=== PATIENT | male | born 1955 | race Caucasian/White ===

== ENCOUNTER 2018-01-04 18:38 | Observation (INO) ==
--- NOTE | 2018-01-04 19:09 | Emergency Department Note ---
Disposition Clinical Impression: Ureterolithiasis, Hydroureter on right Hydronephrosis Qualifiers: Hydronephrosis type: unspecified Qualified Code(s): N13.30 - Unspecified hydronephrosis Appendicitis Qualifiers: Appendicitis type: acute appendicitis Acute appendicitis type: unspecified acute appendicitis type Qualified Code(s): K35.80 - Unspecified acute appendicitis Disposition: Admitted As Inpatient Condition: Good Time of Disposition: 19:58 Abdominal Pain HPI - General Chief Complaint: ED Abdominal Pain Stated Complaint: abd pain Time Seen by Provider: 01/04/18 18:51 Source: patient Mode of arrival: ambulatory Limitations: no limitations Nursing Notes Reviewed: Yes Vital Signs Reviewed: Yes - History of Present Illness HPI Narrative: Patient is a 62-year-old male with past medical history of hypertension, diabetes, multiple kidney stones in the past. He states that about 1-2 months ago, he was diagnosed with 2 kidney stones on the right, to which he states were in the ureter. He says that he has passed multiple kidney stones in the past since age 22. Denies ever having to have intervention to remove kidney stones. He presents today due to right lower quadrant pain described as a sharp burning with no radiation, gradual in onset.. He states that he has had intermittent sharp pain on the right flank but says that this feels somewhat different from previous kidney stone pain. He was concerned that this could be appendicitis. He denies any other nausea, vomiting, fevers, diarrhea, constipation, blood in stool, dysuria, hematuria, testicular or groin pain. No falls or injuries. Pain Scale: 9 - Related Data Allergies Allergy/AdvReac Type Severity Reaction Status Date / Time IVP dye Allergy Hives Uncoded 01/04/18 18:44 All systems ED: reviewed and negative except as stated. Constitutional: Denies: fever Cardiovascular: Denies: chest pain Respiratory: Denies: cough, dyspnea, wheezes Gastrointestinal: Reports: abdominal pain. Denies: nausea, vomiting, diarrhea, constipation Abdominal Pain PMH - Past Medical History Medical history: Reports: diabetes, hypertension, kidney stones Male Surgical History: Reports: herniorrhaphy Psychiatric history: Reports: no psych history - Social History Smoking status: Never smoker Alcohol use: Reports: occasionally Drug use: Reports: none Physical Exam - General Limitations: no limitations General appearance: alert - Head Head exam: atraumatic, normocephalic, normal inspection - Eye Eye exam: Present: normal appearance, PERRL, EOMI - ENT ENT exam: normal exam, normal oropharynx, mucous membranes moist - Neck Neck exam: Present: normal inspection, full ROM, trachea midline - Chest Chest inspection: Present: normal inspection, symmetric chest wall rise - Respiratory Respiratory exam: Present: normal lung sounds bilaterally - Cardiovascular Cardiovascular exam: Present: regular rate, normal rhythm, normal heart sounds - Abdominal Exam Abdominal exam: Present: soft, tenderness (Tenderness right lower quadrant around McBurney's point), other (Negative heel jar, negative obturator sign). Absent: distention, guarding, rebound, rigidity, Ugarte's sign, Rovsing's sign - Extremities Exam Extremities exam: Present: normal inspection, full ROM. Absent: tenderness, pedal edema - Neurological Exam Neurological exam: Present: alert, oriented X3 - Psychiatric Psychiatric exam: Present: normal affect, normal mood - Skin Skin exam: Present: warm, dry, intact, normal color Course Course Narrative: Patient was tachycardic and hypertensive. We will give 1 L normal saline bolus. Patient is declining any pain medication at this time. He does have right lower quadrant pain on palpation. History of kidney stones. Currently concern for appendicitis versus kidney stones. We will obtain CT of the abdomen and pelvis, basic labs, urinalysis. 20:42 CT abdomen and pelvis shows acute uncomplicated appendicitis. I also reviewed the images myself and there are 2 kidney stones in the right ureter with some mild hydronephrosis. I spoke with Dr. Goff, she has accepted the patient for admission. PTT/INR and PTT are pending. She requested the patient be nothing by mouth and will perform surgery tomorrow morning since vitals are stable and patient is currently not requiring any pain medication at this time. Abdomen/Pelvis CT 01/04/18 19:06 IMPRESSION: Acute uncomplicated appendicitis. Findings were discussed with Wilfrid Gonzales at 8:17 pm on 01/04/2018. D/ / 01/04/2018 20:29:18 [facility] Interpre[facility] Provider: Ashish Adams MD Vital Signs Temperature 98.5 F 01/04/18 18:44 Pulse Rate 108 01/04/18 18:44 Respiratory Rate 20 01/04/18 18:44 Blood Pressure 191/101 01/04/18 18:44 O2 Sat by Pulse Oximetry 95 01/04/18 18:44 Temperature 98.7 F 01/05/18 02:59 Pulse Rate 88 01/05/18 02:59 Respiratory Rate 16 01/05/18 02:59 Blood Pressure 136/75 01/05/18 02:59 O2 Sat by Pulse Oximetry 94 01/05/18 02:59 Oxygen Delivery Oxygen Delivery Room Air Abdominal Pain - MDM Narrative Medical decision making narrative: Patient was tachycardic and hypertensive. We will give 1 L normal saline bolus. Patient is declining any pain medication at this time. He does have right lower quadrant pain on palpation. History of kidney stones. Currently concern for appendicitis versus kidney stones. We will obtain CT of the abdomen and pelvis, basic labs, urinalysis. 20:42 CT abdomen and pelvis shows acute uncomplicated appendicitis. I also reviewed the images myself and there are 2 kidney stones in the right ureter with some mild hydronephrosis. I spoke with Dr. Goff, she has accepted the patient for admission. PTT/INR and PTT are pending. She requested the patient be nothing by mouth and will perform surgery tomorrow morning since vitals are stable and patient is currently not requiring any pain medication at this time. - Medical Records Medical records reviewed: Yes I reviewed the patient's medical records. - Lab Data Lab results reviewed: Yes I reviewed the patient's lab results. Result diagrams: 01/05/18 05:09 01/05/18 05:09 Lab Results 01/04/18 01/04/18 01/04/18 Range/Units 19:05 19:05 19:05 WBC 18.0 H (4.3-11.1) K/mcL RBC 5.75 H (4.19-5.50) M/mcL Hgb 17.9 H (12.9-16.9) g/dL Hct 51.2 H (37.5-50.1) % MCV 89.0 (83.0-100.0) fL MCH 31.1 (28.0-33.3) pg MCHC 35.0 (31.6-35.5) g/dL RDW 13.2 (11.5-14.5) % Plt Count 214 (140-400) K/mcL MPV 10.5 (9.4-12.4) fL Immature Gran % 0.4 (0-4) % Seg Neutrophils % 82.0 % Lymphocytes % 10.0 % Monocytes % 6.7 % Eosinophils % 0.6 % Basophils % 0.3 % Neutrophils # 14.8 H (1.6-8.9) K/mcL Lymphocytes # 1.8 (0.6-4.6) K/mcL Monocytes # 1.2 (0.0-1.3) K/mcL Eosinophils # 0.1 (0.0-0.6) K/mcL Basophils # 0.1 (0.0-0.2) K/mcL PT 11.2 (9.4-12.1) Seconds INR 1.0 APTT 24.8 L (26.0-36.0) Seconds Sodium 136 (136-145) mEq/L Potassium 3.7 (3.5-5.1) mEq/L Chloride 102 (98-107) mEq/L Carbon Dioxide 22 L (23-29) mEq/L BUN 14 (8-23) mg/dL Creatinine 0.95 (0.70-1.30) mg/dL Est GFR ( Amer) > 60 (> 60) Est GFR (Non-Af Amer) > 60 (> 60) BUN/Creatinine Ratio 15 (6-26) Glucose 157 H (70-105) mg/dL Calculated Osmolality 286 (280-300) Calcium 10.1 (8.6-10.3) mg/dL Total Bilirubin 0.8 (0.3-1.0) mg/dL Direct Bilirubin 0.1 (0.0-0.2) mg/dL Indirect Bilirubin 0.7 (0.0-1.2) mg/dL AST 31 (13-39) Units/L ALT 52 (7-52) Units/L Alkaline Phosphatase 71 (34-104) Units/L Serum Total Protein 7.7 (6.4-8.9) g/dL Albumin 5.3 (3.5-5.7) g/dL Globulin 2.4 (2.4-3.5) g/dL Albumin/Globulin Ratio 2.2 (1.1-2.2) Amylase 29 (29-103) Units/L Lipase 33 (11-82) Units/L Urine Color (Yellow) Urine Clarity (Clear) Urine pH (5.0-8.0) pH Units Ur Specific [place] (1.010-1.025) Urine Protein (Neg-Trace) mg/dL Urine Glucose (UA) (Normal) mg/dL Urine Ketones (Negative) mg/dL Urine Blood (Negative) Urine Nitrite (Negative) Urine Bilirubin (Negative) Urine Urobilinogen (Normal) mg/dL Ur Leukocyte Esterase (Negative) Urine Microscopic RBC (0-3) per hpf Urine Microscopic WBC (0-3) per hpf Ur Squamous Epith Cells (None-Few) per lpf Urine Bacteria (None-Few) per hpf Hyaline Casts (None-Few) per lpf Ur Culture Indicated? (NO) 01/04/18 Range/Units 19:30 WBC (4.3-11.1) K/mcL RBC (4.19-5.50) M/mcL Hgb (12.9-16.9) g/dL Hct (37.5-50.1) % MCV (83.0-100.0) fL MCH (28.0-33.3) pg MCHC (31.6-35.5) g/dL RDW (11.5-14.5) % Plt Count (140-400) K/mcL MPV (9.4-12.4) fL Immature Gran % (0-4) % Seg Neutrophils % % Lymphocytes % % Monocytes % % Eosinophils % % Basophils % % Neutrophils # (1.6-8.9) K/mcL Lymphocytes # (0.6-4.6) K/mcL Monocytes # (0.0-1.3) K/mcL Eosinophils # (0.0-0.6) K/mcL Basophils # (0.0-0.2) K/mcL PT (9.4-12.1) Seconds INR APTT (26.0-36.0) Seconds Sodium (136-145) mEq/L Potassium (3.5-5.1) mEq/L Chloride (98-107) mEq/L Carbon Dioxide (23-29) mEq/L BUN (8-23) mg/dL Creatinine (0.70-1.30) mg/dL Est GFR ( Amer) (> 60) Est GFR (Non-Af Amer) (> 60) BUN/Creatinine Ratio (6-26) Glucose (70-105) mg/dL Calculated Osmolality (280-300) Calcium (8.6-10.3) mg/dL Total Bilirubin (0.3-1.0) mg/dL Direct Bilirubin (0.0-0.2) mg/dL Indirect Bilirubin (0.0-1.2) mg/dL AST (13-39) Units/L ALT (7-52) Units/L Alkaline Phosphatase (34-104) Units/L Serum Total Protein (6.4-8.9) g/dL Albumin (3.5-5.7) g/dL Globulin (2.4-3.5) g/dL Albumin/Globulin Ratio (1.1-2.2) Amylase (29-103) Units/L Lipase (11-82) Units/L Urine Color Yellow (Yellow) Urine Clarity Clear (Clear) Urine pH 6.0 (5.0-8.0) pH Units Ur Specific [place] 1.025 (1.010-1.025) Urine Protein Negative (Neg-Trace) mg/dL Urine Glucose (UA) Normal (Normal) mg/dL Urine Ketones Negative (Negative) mg/dL Urine Blood Trace H (Negative) Urine Nitrite Negative (Negative) Urine Bilirubin Negative (Negative) Urine Urobilinogen Normal (Normal) mg/dL Ur Leukocyte Esterase Negative (Negative) Urine Microscopic RBC 5-15 H (0-3) per hpf Urine Microscopic WBC 0-3 (0-3) per hpf Ur Squamous Epith Cells Few (None-Few) per lpf Urine Bacteria None Seen (None-Few) per hpf Hyaline Casts None Seen (None-Few) per lpf Ur Culture Indicated? NO (NO) - Radiology Data Radiology results reviewed: Yes I reviewed the patient's radiology results. Abdomen/Pelvis CT 01/04/18 19:06 IMPRESSION: Acute uncomplicated appendicitis. Findings were discussed with Wilfrid Gonzales at 8:17 pm on 01/04/2018. D/ / 01/04/2018 20:29:18 Ashish Adams MD / [facility] Interpreting Provider: Ashish Adams MD [facility] Situation: Demographics, MOA Background: Presenting Complaint, Relevant PMH, Meds, & Allergies Assessment: Vital Signs, Course and respsone to treatment, Exam Concerns, Patient/Family Expectation, Pertinant Lab Results Recommendation: Barrier(s) to disposition, Recommendation based on pending studies, treatments, or consults [facility].B.A.R. Report Given to: Dr. Goff Attestation Statement - Attestation Attestation: I examined this patient and my medical decision-making was reviewed with the Resident Physician. I agree with the documented findings, disposition and treatment plan as described except to the extent set forth below. Acute appendicitis. We will admit for surgical evaluation. Discussed case with general surgery.
[2018-01-04] MEDS ORDERED: 0.9 % Sodium Chloride 1,000 ML IVC ONE (19:11)
[2018-01-04 19:22] LABS: Basophils # 0.1 K/mcL (0.0-0.2); Basophils % 0.3 %; Eosinophils # 0.1 K/mcL (0.0-0.6); Eosinophils % 0.6 %; Hematocrit 51.2 % (37.5-50.1); Hemoglobin 17.9 g/dL (12.9-16.9); Immature Granulocytes % 0.4 % (0-4); Lymphocytes # 1.8 K/mcL (0.6-4.6); Mean Corpuscular Hemoglobin 31.1 pg (28.0-33.3); Mean Platelet Volume 10.5 fL (9.4-12.4); Monocytes # 1.2 K/mcL (0.0-1.3); Monocytes % 6.7 %; Neutrophils # 14.8 K/mcL (1.6-8.9); Platelet Count 214 K/mcL (140-400); Red Blood Count 5.75 M/mcL (4.19-5.50); Red Cell Distribution Width 13.2 % (11.5-14.5)
[2018-01-04 19:37] LABS: Bilirubin,Urine Negative (Negative); Blood,Urine Trace (Negative); Clarity,Urine Clear (Clear); Color,Urine Yellow (Yellow); Glucose,Urine (UA) Normal (Normal); Ketones,Urine Negative (Negative); Leukocyte Esterase,Urine Negative (Negative); Nitrite,Urine Negative (Negative); Protein,Urine Negative (Neg-Trace); Specific Gravity,Urine 1.025 (1.010-1.025); Urobilinogen,Urine Normal (Normal)
[2018-01-04 19:42] LABS: Bacteria,Urine None Seen per hpf (None-Few); Hyaline Casts,Urine None Seen per lpf (None-Few); Squamous Epithelial Cell,Urine Few per lpf (None-Few); WBC,Urine 0-3 per hpf (0-3)
[2018-01-04 19:42] LABS: Alanine Aminotransferase 52 Units/L (7-52); Albumin 5.3 g/dL (3.5-5.7); Albumin/Globulin Ratio 2.2 (1.1-2.2); Alkaline Phosphatase 71 Units/L (34-104); Amylase 29 Units/L (29-103); Aspartate Amino Transferase 31 Units/L (13-39); BUN/Creatinine Ratio 15 (6-26); Bilirubin,Direct 0.1 mg/dL (0.0-0.2); Bilirubin,Indirect 0.7 mg/dL (0.0-1.2); Bilirubin,Total 0.8 mg/dL (0.3-1.0); Blood Urea Nitrogen 14 mg/dL (8-23); Calcium 10.1 mg/dL (8.6-10.3); Carbon Dioxide 22 mEq/L (23-29); Chloride 102 mEq/L (98-107); Globulin 2.4 g/dL (2.4-3.5); Glucose 157 mg/dL (70-105); Lipase 33 Units/L (11-82); Osmolality,Calculated 286 (280-300); Potassium 3.7 mEq/L (3.5-5.1); Sodium 136 mEq/L (136-145); Total Protein 7.7 g/dL (6.4-8.9); eGFR For African Americans > 60 (> 60); eGFR For Non-African Americans > 60 (> 60)
[2018-01-04 20:57] LABS: Prothrombin Time 11.2 Seconds (9.4-12.1)
[2018-01-04 20:59] LABS: Activated Partial Thrombo Time 24.8 Seconds (26.0-36.0)
[2018-01-04] MEDS ORDERED: Ondansetron 4 MG/2 ML VIAL IVP PRN (22:30)
[2018-01-04] MEDS ORDERED: OXYCODONE Oral CONC 10 MG/0.5 ML ORAL.SYG SL PRN (22:30)
[2018-01-04] MEDS ORDERED: Acetaminophen 325 MG TABLET PO PRN (22:31)
[2018-01-04] MEDS: 0.9 % Sodium Chloride 1,000 ML IVC SCH (23:59)
[2018-01-05 05:42] LABS: Basophils # 0.1 K/mcL (0.0-0.2); Basophils % 0.3 %; Eosinophils # 0.1 K/mcL (0.0-0.6); Eosinophils % 0.7 %; Hematocrit 45.6 % (37.5-50.1); Immature Granulocytes % 0.5 % (0-4); Lymphocytes # 2.2 K/mcL (0.6-4.6); Lymphocytes % 14.5 %; Mean Corpuscular HGB Conc 35.3 g/dL (31.6-35.5); Mean Corpuscular Volume 90.7 fL (83.0-100.0); Mean Platelet Volume 10.4 fL (9.4-12.4); Monocytes # 1.4 K/mcL (0.0-1.3); Monocytes % 9.3 %; Neutrophils # 11.4 K/mcL (1.6-8.9); Platelet Count 187 K/mcL (140-400); Red Blood Count 5.03 M/mcL (4.19-5.50); Segmented Neutrophils % 74.7 %
[2018-01-05 05:43] LABS: Hemoglobin 16.1 g/dL (12.9-16.9)
[2018-01-05 06:06] LABS: BUN/Creatinine Ratio 12 (6-26); Blood Urea Nitrogen 11 mg/dL (8-23); Calcium 9.4 mg/dL (8.6-10.3); Carbon Dioxide 26 mEq/L (23-29); Chloride 106 mEq/L (98-107); Glucose 150 mg/dL (70-105); Osmolality,Calculated 290 (280-300); Potassium 3.4 mEq/L (3.5-5.1); Sodium 139 mEq/L (136-145); eGFR For African Americans > 60 (> 60); eGFR For Non-African Americans > 60 (> 60)
--- NOTE | 2018-01-05 08:38 | General Surg History&Physical ---
Addendum entered and electronically signed by Teresita Alston CNP 01/05/18 08: 49: Pt states when he had his tonsillectomy and polyps removed he had trouble with bleeding. He is not able to further elaborate on this and denies taking any blood thinners at this time. Original Note: <Teresita Alston - Last Filed: 01/05/18 08:33> Date of Encounter: 01/05/18 Time of Encounter: 08:33 Assessment and Plan (1) Appendicitis Current Visit: Yes Status: Acute The assessment and plan as outlined above was discussed with the patient and/or family members who expressed understanding and agreement. All questions were answered. H&P are consistent with acute appendicitis. Patient is recommended to undergo surgical intervention. Recommendations, risks, and benefits were reviewed with the patient and his and they are agreeable to proceed. We will plan with surgical intervention in the next 24 to 48 hours. A signed consent is placed on the hard chart. Plan supportive care and discomfort management NPO IV fluids G.I. prophylaxis DVT prophylaxis incentive spirometry Qualifiers: Appendicitis type: acute appendicitis Acute appendicitis type: unspecified acute appendicitis type Qualified Code(s): K35.80 - Unspecified acute appendicitis (2) Hypertension Current Visit: Yes Status: Acute The assessment and plan as outlined above was discussed with the patient and/or family members who expressed understanding and agreement. All questions were answered. PRN IV antihypertensives resume home meds when able Qualifiers: Hypertension type: essential hypertension Qualified Code(s): I10 - Essential (primary) hypertension (3) Type II diabetes mellitus Current Visit: Yes Status: Acute The assessment and plan as outlined above was discussed with the patient and/or family members who expressed understanding and agreement. All questions were answered. NPO Q6 Accu checks sliding scale correction PRN Qualifiers: Diabetes mellitus tank cooper insulin use: without tank cooper use Diabetes mellitus complication status: with unspecified complications Qualified Code(s) : E11.8 - Type 2 diabetes mellitus with unspecified complications (4) Renal calculi Current Visit: Yes Status: Acute The assessment and plan as outlined above was discussed with the patient and/or family members who expressed understanding and agreement. All questions were answered. Will continue to monitor History of Present Illness Chief complaint: RLQ pain HPI: Mr. Arrington is a 62 year old male 01/04/2018 for complaints of right lower quadrant abdominal discomfort that started approximately 8 AM in the morning. He reports that there were no preceding factors, this was a sudden onset of sharp right lower quadrant pain. Patient states he had had kidney stones in the past and that this discomfort felt similar in the character but much worse in the amount of discomfort. He reports the pain as an 8 out of 10, right lower quadrant, has not migrated, is aggravated by activities such as movement, coughing, the right in the car, and palpation. There is associated nausea but no vomiting. He denies fever. Discomfort is relieved by pain medication in the antibiotics he is been getting through this IV. He denies constipation, diarrhea, changes in his bowel habits, black, bloody, or tarry stool, urinary signs or symptoms, chest pain, shortness of breath, or generalized weakness. His hospital course thus far has included an abdominal CT without contrast which revealed acute uncomplicated appendicitis. There are inflammatory changes without evidence of abscess or perforation. His white blood cell count was elevated at 18.0, he was started on Zosyn, and his white blood cell count today is 15.3. He reports a past medical history of type II diabetes, hypertension that is controlled, renal calculi, umbilical hernia that was repaired by Dr. Perez, denies smoking history, illicit drug use, or alcohol use. 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 Past Med Surg Social Fam HX - Past Medical History Source: patient Medical history: diabetes, hypertension, kidney stones Psychiatric history: no psych history - Past Surgical History Surgical History: herniorrhaphy, tonsilectomy - Social History Smoking Status: Never smoker Smokeless Tobacco Status: No Alcohol use: occasionally Drug use: none Occupational status: employed Current living situation: Home - Independent Activity Level: Independent ambulation - Family History Mother Living Status: Hx Family Cancer: Yes Father Living Status: Hx Family Cancer: Yes Medications and Allergies Amlodipine Besylate 10 mg PO DAILY 01/05/18 [History] Aspirin [Lo-Dose Aspirin EC] 81 mg PO DAILY 01/05/18 [History] Cholecalciferol (Vitamin D3) [Vitamin D] 5,000 unit PO DAILY 01/05/18 [History] Krill/Om-3/Dha/Epa/Phospho/Ast [Krill Oil 500 mg Softgel] 1 each PO DAILY [History] Lutein [Natural Lutein] 20 mg PO DAILY 01/05/18 [History] Metoprolol [Lopressor] 50 mg PO HS 01/05/18 [History] Metoprolol [Lopressor] 100 mg PO DAILY 01/05/18 [History] Mometasone Furoate [Mometasone Furoate] 2 spr NS DAILY 01/05/18 [History] Potassium Chloride [Klor-Con 10] 20 meq DAILY 01/05/18 [History] Triamterene/HCTZ 37.5/25mg [Dyazide] 1 tab PO DAILY 01/05/18 [History] 3 Allergy/AdvReac Type Severity Reaction Status Date / Time IVP dye Allergy Hives Uncoded 01/04/18 18:44 Review of Systems All systems PM: reviewed and no additional remarkable complaints except as stated All systems PM: The remainder of the systems were reviewed and are negative General Surgery Exam Initial Vital Signs Temp Pulse Resp BP Pulse Ox 98.5 F 108 20 191/101 95 01/04/18 18:44 01/04/18 18:44 01/04/18 18:44 01/04/18 18:44 01/04/18 18:44 VITAL SIGNS: Reviewed. See [facility] GENERAL: In no apparent distress. HEENT: Normocephalic, atraumatic, pupils are equal and reactive, extraocular motions intact, oropharynx is pink and moist, there is no neck adenopathy or JVD noted. CHEST/RESPIRATORY: The thorax is free from signs of trauma. Lung sounds: clear to auscultation, normal respiratory effort CARDIAC: Regular rate and rhythm. Normal S1 and S2, without murmurs, gallops, or rubs. VASCULAR: No Edema. 2+ peripheral pulses. ABDOMEN: soft, hypoactive bowel sounds, tenderness in the right lower quadrant , positive McBurney, positive psoas, positive obturator, positive Rovsing MUSCULOSKELETAL: Good range of motion of all major joints. Extremities without clubbing, cyanosis or edema. NEUROLOGIC EXAM: Alert and oriented x 3. Speech normal. Follows commands. PSYCHIATRIC: Mood normal. SKIN: No rash or lesions. Results - Labs 01/05/18 05:09 01/05/18 05:09 Abnormal lab results WBC 15.3 K/mcL (4.3-11.1) H 01/05/18 05:09 Neutrophils # 11.4 K/mcL (1.6-8.9) H 01/05/18 05:09 Monocytes # 1.4 K/mcL (0.0-1.3) H 01/05/18 05:09 APTT 24.8 Seconds (26.0-36.0) L 01/04/18 19:05 Potassium 3.4 mEq/L (3.5-5.1) L 01/05/18 05:09 Glucose 150 mg/dL (70-105) H 01/05/18 05:09 POC Glucose 173 mg/dL (70-99) H 01/05/18 05:00 Urine Blood Trace (Negative) H 01/04/18 19:30 Urine Microscopic RBC 5-15 per hpf (0-3) H 01/04/18 19:30 Diabetes panel 01/05/18 Range/Units 05:09 Sodium 139 (136-145) mEq/L Potassium 3.4 L (3.5-5.1) mEq/L Chloride 106 (98-107) mEq/L Carbon Dioxide 26 (23-29) mEq/L BUN 11 (8-23) mg/dL Creatinine 0.90 (0.70-1.30) mg/dL Glucose 150 H (70-105) mg/dL Calcium 9.4 (8.6-10.3) mg/dL Calcium panel 01/05/18 Range/Units 05:09 Calcium 9.4 (8.6-10.3) mg/dL Pituitary panel 01/05/18 Range/Units 05:09 Sodium 139 (136-145) mEq/L Potassium 3.4 L (3.5-5.1) mEq/L Chloride 106 (98-107) mEq/L Carbon Dioxide 26 (23-29) mEq/L BUN 11 (8-23) mg/dL Creatinine 0.90 (0.70-1.30) mg/dL Glucose 150 H (70-105) mg/dL Calcium 9.4 (8.6-10.3) mg/dL Adrenal panel 01/05/18 Range/Units 05:09 Sodium 139 (136-145) mEq/L Potassium 3.4 L (3.5-5.1) mEq/L Chloride 106 (98-107) mEq/L Carbon Dioxide 26 (23-29) mEq/L BUN 11 (8-23) mg/dL Creatinine 0.90 (0.70-1.30) mg/dL Glucose 150 H (70-105) mg/dL Calcium 9.4 (8.6-10.3) mg/dL All other labs normal. - Imaging CT scan - abdomen: report reviewed CT scan - pelvis: report reviewed <Katina Goff - Last Filed: 01/05/18 13:13> Date of Encounter: 01/05/18 Assessment and Plan (1) Leukocytosis Current Visit: Yes Status: Acute The assessment and plan as outlined above was discussed with the patient and/or family members who expressed understanding and agreement. All questions were answered. continue zosyn trend wbc decreased today Qualifiers: Leukocytosis type: unspecified Qualified Code(s): D72.829 - Elevated white blood cell count, unspecified (2) Acute appendicitis Current Visit: Yes Status: Acute The assessment and plan as outlined above was discussed with the patient and/or family members who expressed understanding and agreement. All questions were answered. discussed CT scan with patient and his , he has acute appendicitis. will plan laparoscopic appendectomy possible open risks and benefits discussed and he wishes to proceed continue npo ivfh zosyn prn pain control gi/dvt prophylaxis Qualifiers: Acute appendicitis type: unspecified acute appendicitis type Qualified Code (s): K35.80 - Unspecified acute appendicitis (3) Hypertension Current Visit: Yes Status: Acute The assessment and plan as outlined above was discussed with the patient and/or family members who expressed understanding and agreement. All questions were answered. Qualifiers: Hypertension type: essential hypertension Qualified Code(s): I10 - Essential (primary) hypertension (4) Type II diabetes mellitus Current Visit: Yes Status: Acute The assessment and plan as outlined above was discussed with the patient and/or family members who expressed understanding and agreement. All questions were answered. Qualifiers: Diabetes mellitus fdc insulin use: without tank cooper use Diabetes mellitus complication status: with unspecified complications Qualified Code(s) : E11.8 - Type 2 diabetes mellitus with unspecified complications History of Present Illness HPI: Mr. Arrington is a 62 year old male who developed right lower quadrant sharp abdominal pain yesterday. The pain was sharp without radiation. He has a history of kidney stones and states this pain is different. He had nausea but without emesis. No diarrhea, no dysuria. He presented to ED and CT shows acute appendicitis. Patient with elevated wbc 18.0. Past Med Surg Social Fam HX - Past Medical History Source: patient Review of Systems All systems PM: reviewed and no additional remarkable complaints except as stated All systems PM: The remainder of the systems were reviewed and are negative General Surgery Exam Initial Vital Signs Temp Pulse Resp BP Pulse Ox 98.5 F 108 20 191/101 95 01/04/18 18:44 01/04/18 18:44 01/04/18 18:44 01/04/18 18:44 01/04/18 18:44 - General physical appearance well developed, well nourished, no distress - Eyes PERRL, normal ocular movement - ENT normal mucosa, normocephalic - Respiratory normal expansion, clear to auscultation - Cardiovascular Cardiovascular exam: Present: RRR - Abdomen Abdomen general surgery: Present: bowel sounds present, soft, tender. Absent: distended, guarding, rebound Abdominal Tenderness: Present: RLQ, LLQ - Integumentary Integumentary general surgery: Present: warm and dry, no abnormal pigmentation - Neurologic Present: CN 2-12 grossly intact - Musculoskeletal Present: normal posture - Psychiatric Psychiatric general surgery: Present: A&Ox3, speech is normal Results - Labs 01/05/18 05:09 01/05/18 05:09 Abnormal lab results WBC 15.3 K/mcL (4.3-11.1) H 01/05/18 05:09 Neutrophils # 11.4 K/mcL (1.6-8.9) H 01/05/18 05:09 Monocytes # 1.4 K/mcL (0.0-1.3) H 01/05/18 05:09 APTT 24.8 Seconds (26.0-36.0) L 01/04/18 19:05 Potassium 3.4 mEq/L (3.5-5.1) L 01/05/18 05:09 Glucose 150 mg/dL (70-105) H 01/05/18 05:09 POC Glucose 142 mg/dL (70-99) H 01/05/18 10:57 Urine Blood Trace (Negative) H 01/04/18 19:30 Urine Microscopic RBC 5-15 per hpf (0-3) H 01/04/18 19:30 Diabetes panel 01/05/18 Range/Units 05:09 Sodium 139 (136-145) mEq/L Potassium 3.4 L (3.5-5.1) mEq/L Chloride 106 (98-107) mEq/L Carbon Dioxide 26 (23-29) mEq/L BUN 11 (8-23) mg/dL Creatinine 0.90 (0.70-1.30) mg/dL Glucose 150 H (70-105) mg/dL Calcium 9.4 (8.6-10.3) mg/dL Calcium panel 01/05/18 Range/Units 05:09 Calcium 9.4 (8.6-10.3) mg/dL Pituitary panel 01/05/18 Range/Units 05:09 Sodium 139 (136-145) mEq/L Potassium 3.4 L (3.5-5.1) mEq/L Chloride 106 (98-107) mEq/L Carbon Dioxide 26 (23-29) mEq/L BUN 11 (8-23) mg/dL Creatinine 0.90 (0.70-1.30) mg/dL Glucose 150 H (70-105) mg/dL Calcium 9.4 (8.6-10.3) mg/dL Adrenal panel 01/05/18 Range/Units 05:09 Sodium 139 (136-145) mEq/L Potassium 3.4 L (3.5-5.1) mEq/L Chloride 106 (98-107) mEq/L Carbon Dioxide 26 (23-29) mEq/L BUN 11 (8-23) mg/dL Creatinine 0.90 (0.70-1.30) mg/dL Glucose 150 H (70-105) mg/dL Calcium 9.4 (8.6-10.3) mg/dL All other labs normal. - Imaging CT scan - abdomen: report reviewed, image reviewed CT scan - pelvis: report reviewed, image reviewed - Attending Attestation I have personally performed a face to face evaluation on this patient. I have reviewed and agree with the care plan. History and Exam by me shows:
[2018-01-05] MEDS ORDERED: D5% in Water 1,000 ML IVC PRN ×2 (08:43→16:52)
[2018-01-05] MEDS ORDERED: Dextrose Gel 15 GM/37.5 ML TUBE PO PRN ×4 (08:43→16:52)
[2018-01-05] MEDS ORDERED: *HR* Dextrose 50 % in Water (Syg) 50 ML SYRINGE IVP PRN ×2 (08:43→16:52)
[2018-01-05] MEDS: 0.9 % Sodium Chloride 1,000 ML IVC SCH (08:58)
[2018-01-05] MEDS: Piperacillin/Tazobactam 3.375 GM in 0.9 % Sodium Chloride Mini Bag 100 ML IVPB SCH ×2 (08:58)
[2018-01-05] MEDS ORDERED: Metoprolol 100 MG TABLET PO SCH (09:00)
[2018-01-05] MEDS ORDERED: Insulin LISPRO 300 UNITS/3 ML VIAL SQ SCH ×3 (12:00→21:00)
--- NOTE | 2018-01-05 12:01 | Anesthesia Evaluation PreOp ---
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 Any Significant HX Other Medical History: Renal (stones), Diabetes Type II (diet controlled) Anesthesia History: No Prior Anesthetic Complications, Past Anesthesia ( tonisllectomy, umbilical hernia repair) Alcohol Use: occasionally Drug use: none Medications and Allergies Amlodipine Besylate 10 mg PO DAILY 01/05/18 [History] Aspirin [Lo-Dose Aspirin EC] 81 mg PO DAILY 01/05/18 [History] Cholecalciferol (Vitamin D3) [Vitamin D] 5,000 unit PO DAILY 01/05/18 [History] Krill/Om-3/Dha/Epa/Phospho/Ast [Krill Oil 500 mg Softgel] 1 each PO DAILY [History] Lutein [Natural Lutein] 20 mg PO DAILY 01/05/18 [History] Metoprolol [Lopressor] 50 mg PO HS 01/05/18 [History] Metoprolol [Lopressor] 100 mg PO DAILY 01/05/18 [History] Mometasone Furoate [Mometasone Furoate] 2 spr NS DAILY 01/05/18 [History] Potassium Chloride [Klor-Con 10] 20 meq DAILY 01/05/18 [History] Triamterene/HCTZ 37.5/25mg [Dyazide] 1 tab PO DAILY 01/05/18 [History] 3 Allergy/AdvReac Type Severity Reaction Status Date / Time IVP dye Allergy Hives Uncoded 01/04/18 18:44 - Meds/Allergy Pre-op Review Medications Reviewed: Yes Allergies Reviewed: Yes Beta Blockers on Current Med List: Yes If Beta Blockers taken, Date/Time (Last Dose taken): 01/05/18 at 856am Anesthesia Results - Labs 01/05/18 05:09 01/05/18 05:09 Laboratory Tests 01/04/18 01/05/18 19:05 10:57 PT 11.2 INR 1.0 APTT 24.8 L POC Glucose 142 H - Imaging EKG: report reviewed (SR 01/05/18) Anesthesia Exam Vital Signs/O2 Sat, Most Current Temp Pulse Resp BP Pulse Ox 98.2 F 61 16 111/70 94 01/05/18 10:59 01/05/18 10:59 01/05/18 10:59 01/05/18 10:59 01/05/18 10:59 - HEENT Pupil (Motor): Pupils equal, EOMI Mallampati: II Oral Opening: Greater than 3 - ARMATURE WINDER REPAIRER LOC: Oriented ARMATURE WINDER REPAIRER Motor: Normal RUE, Normal LUE, Normal RLE, Normal LLE, Normal Face ARMATURE WINDER REPAIRER Sensory: Normal: RUE, LUE, RLE, LLE, Face - Cardiac Rhythm: Regular - Pulmonary Breath Sounds: bilateral Clear Respiratory Effort: Symmetrical Anesthesia Assess/Plan ASA Score: 2 Modified Dayanna Scale for Level of Consciousness: Cooperative, oriented, and tranquil Anesthetic Plan: General Monitoring Plan: Standard Monitors Recovery Plan: PACU
[2018-01-05] MEDS ORDERED: *HR* FentaNYL (PF) 100 MCG/2 ML VIAL ONE ×2 (14:53→14:57)
--- NOTE | 2018-01-05 14:53 | Electrocardiograph Report ---
[address] [address] Test Date: 2018-01-05 Pat Name: Fletcher Arrington Department: 101 Room: 3A48 Gender: M [employer] Principal: KIM : 1955 Requested By: Josette Amado Order Number: [id number] Reading MD: Erick Hameed Measurements Intervals [facility] Rate: 73 P: 57 CO: 166 QRS: -4 QRSD: 99 T: 16 QT: 406 QTc: 432 Interpretive Statements SINUS RHYTHM Electronically Signed On 01-05-2018 14:51:52 EDT by Erick Hameed
[2018-01-05] MEDS ORDERED: Ketorolac 30 MG/ML VIAL ONE (14:54)
[2018-01-05] MEDS ORDERED: *HR* Midazolam HCl 2 MG/2 ML VIAL ONE (14:57)
[2018-01-05] MEDS ORDERED: *HR* Rocuronium Bromide 50 MG/5 ML VIAL ONE (14:57)
[2018-01-05] MEDS ORDERED: Lidocaine -MPF 2% 2 ML VIAL ONE (14:57)
[2018-01-05] MEDS ORDERED: *HR* Succinylcholine 200 MG/10 ML VIAL IVP ONE (14:57)
[2018-01-05] MEDS ORDERED: *HR* Propofol 200 MG/20 ML VIAL IVP ONE (14:57)
[2018-01-05] MEDS ORDERED: Ondansetron 4 MG/2 ML VIAL ONE (15:29)
[2018-01-05] MEDS ORDERED: Dexamethasone 4 MG/ML VIAL ONE (15:29)
[2018-01-05] MEDS ORDERED: *HR* OxyCODONE Immed Rel 5 MG TABLET PO PRN (15:39)
[2018-01-05] MEDS ORDERED: *HR* Promethazine 25 MG/ML VIAL IVP PRN (15:39)
[2018-01-05] MEDS ORDERED: MORPHINE SUL Oral CONC 10 MG/0.5 ML ORAL.SYG SL PRN (15:39)
[2018-01-05] MEDS ORDERED: Neostigmine Methylsulfate 3 MG/3 ML SYRINGE ONE (15:53)
--- NOTE | 2018-01-05 16:04 | Operative Note ---
Date of procedure: 01/05/18 Pre-op diagnosis: acute appendicitis Post-op diagnosis: same Procedure: Laparoscopic appendectomy Complications: none immediate Anesthesia: GETA Surgeon: Katina Goff Was there an resident assistant cna present: Yes Sales Agent: Vita Minor Estimated blood loss (cc): 5 Specimen: appendix Condition: stable Disposition: PACU Procedure in Detail: The patient was brought into the operating suite and placed supine on the operating table. Sign-in was performed and everyone was in agreement. Anesthesia was induced and patient was endotracheally intubated by anesthesia without incident. An OG tube was placed by anesthesia. The abdomen was prepped and draped in the usual sterile fashion. A timeout was performed and again everyone was in agreement. A supraumbilical incision was made through the skin and the subcutaneous tissue with an 11 blade. Towel clamps were placed on either side of the umbilicus for retraction. S-retractors were used to dissect down to the anterior abdominal wall linea alba fascia. A Veress needle was placed into this incision and a water drop test confirmed placement and the abdomen was insufflated. We then entered the abdomen with the 5 mm 0 degree laparoscope on a 5 mm X-connie trocar. The area under entry was visualized and there was no bleeding and no apparent bowel injury. We placed a suprapubic 5 mm port under direct visualization after first incising the skin with an 11 blade. The laparoscope was placed through this and we exchanged the supraumbilical port for a 12 mm port under direct visualization. We then placed another 5 mm port in the left lower quadrant position under direct visualization after first incising the skin with an 11 blade. The patient was placed in slight Trendelenburg left side down position. The cecum was located as was the appendix. The appendix was grasped and retracted anteriorly and caudally with a laparoscopic April. A [place] was used to dissect between the mesoappendix and the appendix at the base of the cecum. The mesoappendix was transected with a laparoscopic flex-ex ETS stapler using a white load. The appendix was transected at the base of the cecum with the same stapler utilizing a white load. The appendix was placed in a laparoscopic Endo Catch bag and removed via the supraumbilical incision site. Both staple lines were evaluated and there was no bleeding and both staple lines were intact. The area was irrigated with sterile saline which was then suctioned free from the abdomen. The insufflation was suctioned free from the abdomen and all trochars removed. We closed the abdominal wall at the supraumbilical incision site with an 0 Vicryl [id number] stitch. A 30 cc of 0.5% Marcaine was injected subcutaneously at the 3 port sites. The skin at the two 5 mm port sites was closed with 4-0 Monocryl interrupted subcuticular stitches. The skin at the supraumbilical incision site was closed with a 4-0 Monocryl running subcuticular stitch. Steri-Strips were applied to the wounds. The patient was extubated in the OR and tolerated the procedure well and was taken to PACU after all lap and instrument counts were correct at the end of the case.
--- NOTE | 2018-01-05 16:45 | Anesthesia Evaluation Post Op ---
Date of Encounter: 01/05/18 Time of Encounter: 16:44 - Vital Signs Vital Signs: Vital Signs/O2 Sat, Most Current Temp Pulse Resp BP Pulse Ox 98.0 F 58 16 127/78 95 01/05/18 16:09 01/05/18 16:29 01/05/18 16:29 01/05/18 16:29 01/05/18 16:29 - Lungs Lungs: Clear Ascult./Percussion - Airway Airway: Non-obstructed - Cardiovascular Regular Rate - Mental Status Mental Status: Alert & Oriented, Answers Appropriately - Pain Pain Scale: 0 Pain Scale used: Numeric (1 - 10) - Nausea Vomiting Nausea Vomiting: Not Present - Hydration Hydration: Ice chips, Has not voided - Discharge PostOp Status: Transfer Patient to floor
[2018-01-05] MEDS ORDERED: 0.9 % Sodium Chloride 1,000 ML IVC SCH (16:52)
[2018-01-05] MEDS ORDERED: OXYCODONE Oral CONC 10 MG/0.5 ML ORAL.SYG SL PRN (16:52)
[2018-01-05] MEDS ORDERED: Ondansetron 4 MG/2 ML VIAL IVP PRN (16:52)
[2018-01-05] MEDS ORDERED: *HR* OxyCODONE/APAP 5/325 TABLET PO PRN (16:52)
[2018-01-06 06:46] VITALS: BP 124/79
[2018-01-06] MEDS ORDERED: Insulin LISPRO 300 UNITS/3 ML VIAL SQ SCH (07:30)
--- NOTE | 2018-01-06 08:48 | Discharge Summary ---
<Tutu Lawrence - Last Filed: 01/06/18 08:45> Orders not resulted at time of discharge: Pending orders 01/05/18 15:55 Surgical Pathology [PTH] Routine Date of Encounter: 01/06/18 Time of Encounter: 07:15 - Discharge Diagnosis (1) Acute appendicitis Priority: Primary Status: Resolved Comments: Uncomplicated; received IV Zosyn prior to successful laparoscopic appendectomy. No antibiotics warranted on discharge. Qualifiers: Acute appendicitis type: unspecified acute appendicitis type Qualified Code (s): K35.80 - Unspecified acute appendicitis General Surgery Exam Initial Vital Signs Temp Pulse Resp BP Pulse Ox 98.5 F 108 20 191/101 95 01/04/18 18:44 01/04/18 18:44 01/04/18 18:44 01/04/18 18:44 01/04/18 18:44 VITAL SIGNS: Reviewed. See [facility] GENERAL: alert and comfortable. No acute distress. Answers questions appropriately. HEENT: PER, EOMi, oropharynx pink/moist CV: RRR, no murmurs or extra heart sounds RESPIRATORY: CTAB without wheezes, rales, or rhonchi ABD: active, soft, non-tender, no guarding, no rigidity/distention INCISION: trocar incisions are clean, dry, intact without purulence/bleeding/ edema/rubor/calor EXTREMITY: grossly normal motor function, no pedal edema, radial pulse 2+ b/l NEUROLOGIC EXAM: AOx3, obeys commands, no speech deficits. PSYCHIATRIC: normal mood and affect SKIN: no gross lesions, rashes, or skin changes - Hospital Course Hospital course: Mr. Arrington is a 62 year old male admitted on 01/04/2018 for complaints of right lower quadrant abdominal pain started early that morning. Was sudden onset. Was not radiating or migratory. Patient does have history of nephrolithiasis and stated this pain was similar, but had a different superficial burning/warm quality. Pain worsened with movement. Had nausea following onset of pain but no vomiting. Denied subjective fever. Severity of pain and difference in quality from his 'usual kidney stones'. CT done in the ER demonstrated acute uncomplicated appendicitis; no evidence of abscess or perforation. Exam supportive of CT findings of acute appendicitis. Also had initial leukocytosis and 18.0k. Started on IV Zosyn prior to laparoscopic appendectomy on 01/05/2018. Surgery well-tolerated. Leukocytosis decreased to 15.3k. Patient states he is completely pain-free in postoperative period. No fever, nausea, vomiting, or evidence of surgical site infection. Patient has passed flatus and has appetite. Tolerated morning meal without difficulty. Discharged home in good condition with appropriate follow-up in general surgery outpatient clinic. Aftercare instructions as well as return precautions given to patient in verbal and written form. Patient expresses understanding and all questions are answered. - Time Spent with Patient Total time spent providing and/or coordinating discharge services: - Discharge Medications Prescriptions: HYDROcodone/Acet 10/325 mg [[place] 10-325 mg] 1 tab PO Q6HR PRN 7 Days #28 tab PRN Reason: Severe Pain Docusate [Colace] 100 mg PO BID 30 Days #60 capsule Home Medications: Amlodipine Besylate 10 mg PO DAILY 01/05/18 [History] Aspirin [Lo-Dose Aspirin EC] 81 mg PO DAILY 01/05/18 [History] Cholecalciferol (Vitamin D3) [Vitamin D] 5,000 unit PO DAILY 01/05/18 [History] Krill/Om-3/Dha/Epa/Phospho/Ast [Krill Oil 500 mg Softgel] 1 each PO DAILY [History] Lutein [Natural Lutein] 20 mg PO DAILY 01/05/18 [History] Metoprolol [Lopressor] 50 mg PO HS 01/05/18 [History] Metoprolol [Lopressor] 100 mg PO DAILY 01/05/18 [History] Mometasone Furoate [Mometasone Furoate] 2 spr NS DAILY 01/05/18 [History] Potassium Chloride [Klor-Con 10] 20 meq DAILY 01/05/18 [History] Triamterene/HCTZ 37.5/25mg [Dyazide] 1 tab PO DAILY 01/05/18 [History] Docusate [Colace] 100 mg PO BID 30 Days #60 capsule 01/06/18 [Rx] HYDROcodone/Acet 10/325 mg [[place] 10-325 mg] 1 tab PO Q6HR PRN 7 Days #28 tab [Rx] Allergies/Adverse Reactions: 3 Allergy/AdvReac Type Severity Reaction Status Date / Time IVP dye Allergy Hives Uncoded 01/04/18 18:44 Date of admission: 01/04/18 20:57 Primary care physician: Latisha Rasmussen CNP Discharging clinician: Tutu Lawrence Anticipated date of discharge: 01/06/18 Labs on day of discharge: Labs from last 24 hours 01/06/18 01/05/18 01/05/18 08:00 20:40 17:04 POC Glucose 122 H 236 H 135 H 01/05/18 10:57 POC Glucose 142 H - Patient Status Disposition: Home, Self-Care Condition: Good Functional capacity at discharge: independent ambulation Overall status at discharge: patient is progressing back to baseline - Discharge Instructions Instructions: Appendicitis (DC), Laparoscopic Appendectomy (DC) Follow Up With: Teresita Alston CNP [Advanced Practice Nurse] - 01/16/18 8:30 am Additional Instructions: Please review all discharge educational handouts. Please attend scheduled follow-up appointments; appointment dates and times will be provided for you. You are prescribed medication for pain, nausea, and constipation to be used if/ as needed; take as written. Avoid driving if your pain requires that you take hydrocodone/[place]. Take Colace if you require hydrocodone/[place] for pain; may opt not to take Colace if your stools are soft. Call Dr. Goff's office if you have fever/chills/sweats/body aches, nausea, vomiting, constipation not relieved with meds you have been prescribed, significant abdominal pain after eating, blood in your stools or blackened stools, or signs of infection at your incision sites (includes increasing redness, increasing warmth, swelling, or pus). Avoid heavy lifting until you're reevaluated in the surgical clinic. Wound Care: shower with antibacterial soap; gently wash or allow water to passively run over surgical sites, avoid firm scrubbing of incisional site. May leave incisions open to air or cover with a dry dressing for comfort. Tape to secure. Reinforce or change outer dressing as needed. Call your PCP for other concerns if any arise. - Diet and Activity Activity: increase activity as tolerated Diet: diabetic diet <Katina Goff - Last Filed: 01/07/18 15:30> Date of Encounter: 01/06/18 - Discharge Diagnosis (1) Leukocytosis Status: Acute Qualifiers: Leukocytosis type: unspecified Qualified Code(s): D72.829 - Elevated white blood cell count, unspecified (2) Acute appendicitis Status: Resolved Qualifiers: Acute appendicitis type: unspecified acute appendicitis type Qualified Code (s): K35.80 - Unspecified acute appendicitis (3) Hypertension Status: Acute Qualifiers: Hypertension type: essential hypertension Qualified Code(s): I10 - Essential (primary) hypertension (4) Type II diabetes mellitus Status: Acute Qualifiers: Diabetes mellitus awning maker and installer insulin use: without mcfp use Diabetes mellitus complication status: with unspecified complications Qualified Code(s) : E11.8 - Type 2 diabetes mellitus with unspecified complications General Surgery Exam Initial Vital Signs Temp Pulse Resp BP Pulse Ox 98.5 F 108 20 191/101 95 01/04/18 18:44 01/04/18 18:44 01/04/18 18:44 01/04/18 18:44 01/04/18 18:44 - Abdomen Abdomen general surgery: Present: bowel sounds present, soft, non tender. Absent: distended, guarding, rebound - Incision Incision: Present: clean and dry, intact - Hospital Course Hospital course: Mr. Arrington is a 62 year old male - Time Spent with Patient Total time spent providing and/or coordinating discharge services: Date of admission: 01/04/18 20:57 Primary care physician: Latisha Rasmussen CNP - Attending Attestation I examined this patient and my medical decision-making was reviewed with the Resident Physician. I agree with the documented findings, disposition and treatment plan as described except to the extent set forth below.
[2018-01-06] MEDS ORDERED: amLODIPine 5 MG TABLET PO SCH (09:00)
[2018-01-06] MEDS ORDERED: Metoprolol 100 MG TABLET PO SCH (09:00)
== END 2018-01-06 11:01 | disposition home or self-care (01) ==
LOC: EMEROO 18:38 → 3ANU 18:38
PROVIDERS: ADMIT Surgery; ATTEND Surgery